=== PATIENT | female | born 1945 | race Native Hawaiian/Other Pacific Islander ===

== ENCOUNTER 2020-04-22 09:13 | Outpatient (CLI) | payer OTHER | END 2020-04-22 21:42 | disposition home or self-care (01) | LOC: INF 09:13 | PROVIDERS: ATTEND Internal Medicine Endocrinology, Diabetes & Metabolism | DX: Z23 Encounter for immunization (principal) | CPT/HCPCS: 96372 ==

== ENCOUNTER 2020-05-20 10:34 | Outpatient (CLI) | payer OTHER | END 2020-05-20 23:01 | disposition home or self-care (01) | LOC: INF 10:34 | PROVIDERS: ATTEND Internal Medicine Endocrinology, Diabetes & Metabolism | DX: Z23 Encounter for immunization (principal) | CPT/HCPCS: 96372 ==

== ENCOUNTER 2021-03-26 09:25 | Outpatient (CLI) | payer OTHER | END 2021-03-26 19:23 | disposition home or self-care (01) | LOC: INF 09:25 | PROVIDERS: ATTEND Internal Medicine Endocrinology, Diabetes & Metabolism | DX: Z23 Encounter for immunization (principal) ==